=== PATIENT | female | born 1955 | race Caucasian/White ===

== ENCOUNTER 2025-01-30 06:25 | Day surgery (SDC) | payer OTHER, SELFPAY | END 2025-01-30 14:51 | disposition home or self-care (01) | LOC: GI 06:25 | PROVIDERS: ATTENDING PHYSICIAN Internal Medicine Gastroenterology | DX: D12.0 Benign neoplasm of cecum (principal); D12.1 Benign neoplasm of appendix; D12.3 Benign neoplasm of transverse colon; K63.5 Polyp of colon; K57.30 Diverticulosis of large intestine without perforation or abscess without bleeding; K56.2 Volvulus; K64.8 Other hemorrhoids; Q43.8 Other specified congenital malformations of intestine; K29.80 Duodenitis without bleeding; K22.2 Esophageal obstruction; K22.89 Other specified disease of esophagus; K44.9 Diaphragmatic hernia without obstruction or gangrene; K31.89 Other diseases of stomach and duodenum; Q39.9 Congenital malformation of esophagus, unspecified; K21.9 Gastro-esophageal reflux disease without esophagitis; R10.13 Epigastric pain | CPT/HCPCS: 45385; 45380; 43239; 88305; 88342 ==